=== PATIENT | male | born 1940 | race Caucasian/White ===

== ENCOUNTER → 2017-08-10 | Outpatient (CLI) | payer MEDICARE, OTHER ==
[2017-08-10 16:54] LABS: ABSOLUTE EOSINOPHILS # (AUTO) 0.2 10^3/uL (0.0-0.6); ABSOLUTE LYMPHOCYTES (AUTO) 1.4 10^3/uL (0.5-4.7); ABSOLUTE MONOCYTES (AUTO) 0.5 10^3/uL (0.1-1.4); ABSOLUTE NEUT (AUTO) 3.7 10^3/uL (1.7-8.2); BASOPHILS % (AUTO) 0.4 % (0-2); HEMATOCRIT 35.5 % (37.9-51.0); HEMOGLOBIN 12.3 g/dL (13.5-17.0); HGB HCT DIFFERENCE 1.4; LYMPHOCYTES % (AUTO) 23.9 % (13-45); MEAN CORPUSCULAR HEMOGLOBIN 30.2 pg (27.0-33.4); MEAN CORPUSCULAR HGB CONC 34.7 g/dL (32.0-36.0); MEAN CORPUSCULAR VOLUME 87 fl (80-97); MONOCYTES % (AUTO) 8.1 % (3-13); RED BLOOD COUNT 4.08 10^6/uL (4.35-5.55); RED CELL DISTRIBUTION WIDTH 15.8 % (11.5-14.0); SEGMENTED NEUTROPHILS % (AUTO) 63.6 % (42-78); WHITE BLOOD COUNT 5.8 10^3/uL (4.0-10.5)
[2017-08-10 17:42] LABS: ERYTHROCYTE SEDIMENTATION RATE 24 mm/hr (0-20)
== END ==
LOC: OD 16:23
PROVIDERS: ATTEND Physician Assistant
DX: M25.551 Pain in right hip (principal); M17.11 Unilateral primary osteoarthritis, right knee; Z96.641 Presence of right artificial hip joint
CPT/HCPCS: 36415; 85025; 85652; 86140

== ENCOUNTER → 2017-08-16 | Outpatient (CLI) | payer MEDICARE, OTHER ==
--- NOTE | 2017-08-16 15:34 | RADIOLOGY REPORT (SQ) ---
EXAM DESCRIPTION: NM 3 PHASE BONE SCAN COMPLETED DATE/TIME: 08/16/2017 3:17 pm REASON FOR STUDY: RIGHT HIP PAIN (M25.551) M25.551 PAIN IN RIGHT HIP COMPARISON: Whole-body bone scan 08/14/2010 CT abdomen pelvis 04/03/2011 Pelvis and lumbar spine films 08/10/2017, [facility] RADIONUCLIDE AND DOSE: 21.3 millicuries Tc99m MDP. The route of agent administration: Intravenous. ADDITIONAL DRUGS AND DOSES: None. TECHNIQUE: Following injection of the radiopharmaceutical, serial blood flow images acquired. Equil ibrium blood pool images then acquired. Routine delayed images at 3 hour acquired of the areas of cl inical concern with additional focused images as needed. AREA OF INTEREST: Bilateral hips and knees LIMITATIONS: None. FINDINGS: VASCULAR FLOW IMAGES: Flow images over the pelvis demonstrate no asymmetry. BLOOD POOL IMAGES: Blood pool images over the pelvis were obtained. No abnormal soft tissue accumula tion over the blood pool images, along the right hip. BONES: Delayed images over the lumbar spine, pelvis, femurs, and knees were obtained. No abnormal increased uptake over the lumbar spine or bony pelvis. There is a bare area over the right femoral head region from hip replacements. No increased uptake a long the proximal femur worrisome for prosthesis loosening or infection. A left total knee replacement is present. There is very mild increased uptake along the medial tibia l plateau adjacent to the prosthesis. On the right side, tricompartment osteoarthritis with increase d uptake throughout the right knee is present. KIDNEYS: Symmetric excretion without obstruction. OTHER: No other significant finding. IMPRESSION: No abnormal uptake around the right hip prosthesis worrisome for loosening or infection Minimal increased uptake along the medial tibial plateau adjacent to a left total knee replacement. This could be reactive change rather than from loosening of the prosthesis. Advanced tricompartment osteoarthritis right knee COMMENT: Quality measure 147: Current bone scan is compared with any available plain radiographs, p rior bone scans, and CT/MRI. TECHNICAL DOCUMENTATION: JOB ID: [id number]- All Rights Reserved
== END ==
LOC: RAD 10:35
PROVIDERS: ATTEND Physician Assistant
DX: M25.551 Pain in right hip (principal); M17.11 Unilateral primary osteoarthritis, right knee
CPT/HCPCS: 78315; A9561; Q9969

== ENCOUNTER 2018-07-07 20:18 | Inpatient (IN) | payer OTHER, MEDICARE ==
--- NOTE | 2018-07-07 20:36 | ER Document Report ---
ED Fall - General Mode of Arrival: Medic Information source: Patient, Emergency Med Personnel TRAVEL OUTSIDE OF THE [place] IN LAST 30 DAYS: No <TATIANA NELSON - Last Filed: 07/08/18 00:30> <BRAXTON SINGER - Last Filed: 07/08/18 00:39> - General Stated Complaint: ALTERED MENTAL STATUS Time Seen by Provider: 07/07/18 20:30 Notes: 77 y.o male with HLD, HTN, Afib, asthma and a PSHx of colon resection presents to the ED via EMS after being found on the floor against the door, estimated to be for about a day to a day and a half. Pt hit his head in the fall and is on blood thinners. EMS reports abrasions to abdomen and head. Pt was found with dried urine on him. He is confused, able to state who the president is correctly but he not oriented to place. Normally lives by himself and is able to fully care for himself. (TATIANA NELSON) - Related data Allergies/Adverse Reactions: No Known Allergies Allergy (Unverified 12/30/12 02:06) Past Medical History - General Information source: [facility] Records - Social History Smoking Status: Unknown if Ever Smoked Frequency of alcohol use: Hx of heavy, quit many years ago Lives with: Alone - Past Medical History Cardiac Medical History: Reports: Hx Atrial Fibrillation, Hx Hypercholesterolemia, Hx Hypertension Pulmonary Medical History: Reports: Hx Asthma Past Surgical History: Reports: Hx Abdominal Surgery - colon resection, Hx Orthopedic Surgery, Hx Tonsillectomy - Immunizations Hx Pneumococcal Vaccination: 11/22/09 <TATIANA NELSON - Last Filed: 07/08/18 00:30> - Social History Family History: Reviewed & Not Pertinent <BRAXTON SINGER - Last Filed: 07/08/18 00:39> Review of Systems - Review of Systems Constitutional: No symptoms reported EENT: No symptoms reported Cardiovascular: No symptoms reported Respiratory: No symptoms reported Gastrointestinal: No symptoms reported Genitourinary: No symptoms reported Male Genitourinary: No symptoms reported Musculoskeletal: No symptoms reported Skin: See HPI, Other - abrasions Hematologic/Lymphatic: No symptoms reported Neurological/Psychological: See HPI, Confusion, Other - fall, hit to head on blood thinners -: Yes All other systems reviewed and negative <TATIANA NELSON - Last Filed: 07/08/18 00:30> Physical Exam <TATIANA NELSON - Last Filed: 07/08/18 00:30> <BRAXTON SINGER - Last Filed: 07/08/18 00:39> - Notes Notes: PHYSICAL EXAM GENERAL: Awake. Appears somewhat confused and somewhat tremulous. HEAD: Normocephalic. Abrasion and blood crusted to top of head. Skin sloughing and blistering to LT side of face. EYES: Pupils equal, round, and reactive to light. Extraocular movements intact. ENT: Oral mucosa moist, tongue midline. Dry mucous membranes. NECK: Full range of motion. Supple. Trachea midline. LUNGS: Clear to auscultation bilaterally, no wheezes, rales, or rhonchi. No respiratory distress. HEART: Regular rate and rhythm. No murmurs, gallops, or rubs. ABDOMEN: Obese. Soft, non-tender. Skin sloughing and blistering to abd. Erythema to stomach. Non-distended. Bowel sounds present in all 4 quadrants. No guarding, rebound, or rigidity. EXTREMITIES: Moves all 4 extremities spontaneously. Chronically dry skin. 3+ pitting edema to bilateral lower extremities. Radial and dorsalis pedis pulses 2 /4 bilaterally. No cyanosis. Hypertrophic toenails. NEUROLOGICAL: Awake. Confused, not oriented to place. Speech is not slurred, answers some questions, also some nonsensical speech. Able to follow commands. SKIN: Warm, dry. Negative nikolsky sign. See abdomen, head and extremities above. No active signs of infection. Skin exam is consistent with pt lying on his LT side and abdomen. (TATIANA NELSON) Course - Laboratory Result Diagrams: 07/07/18 20:45 07/07/18 20:45 <TATIANA NELSON - Last Filed: 07/08/18 00:30> - Laboratory Result Diagrams: 07/07/18 20:45 07/07/18 20:45 <BRAXTON SINGER - Last Filed: 07/08/18 00:39> - Re-evaluation Re-evalutation: 07/07/18 23:47 Patient was found down at home, CT scan of head was performed quickly and it ruled out intracranial hemorrhage, CT scan of the neck did not show any signs of fracture, chest x-ray shows possible right lower lobe pneumonia, Zosyn was started, patient does not meet sepsis criteria, he is not hypotensive or tachycardic, he does have an elevated lactic acid at 2.5, there is a leukocytosis at 16.8, patient is not acidotic, venous blood gas is unremarkable , no signs of renal failure, he is in rhabdo with a CK of 5585, troponin is negative, urinalysis shows small blood but no signs of infection. Blood culture and urine cultures are pending. Patient is being hydrated. Discussed patient with Dr. Costello who agrees to admit the patient to his service on the telemetry care unit. (BRAXTON SINGER) - Laboratory Laboratory results interpreted by me: 07/07/18 07/07/18 07/07/18 20:45 20:45 20:45 WBC 16.8 H RDW 16.5 H Seg Neuts % (Manual) 91 H Band Neutrophils % 1 L Lymphocytes % (Manual) 6 L Monocytes % (Manual) 2 L Abs Neuts (Manual) 15.5 H PT 16.2 H Sodium 147.6 H BUN 34 H Glucose 182 H Lactic Acid Total Bilirubin 1.7 H AST 145 H Creatine Kinase CK-MB (CK-2) Urine Protein Urine Ketones Urine Blood Urine Urobilinogen Urine Ascorbic Acid 07/07/18 07/07/18 07/07/18 20:45 20:45 20:45 WBC RDW Seg Neuts % (Manual) Band Neutrophils % Lymphocytes % (Manual) Monocytes % (Manual) Abs Neuts (Manual) PT Sodium BUN Glucose Lactic Acid 2.5 H Total Bilirubin AST Creatine Kinase 5585 H CK-MB (CK-2) 19.20 H Urine Protein Urine Ketones Urine Blood Urine Urobilinogen Urine Ascorbic Acid 07/07/18 22:35 WBC RDW Seg Neuts % (Manual) Band Neutrophils % Lymphocytes % (Manual) Monocytes % (Manual) Abs Neuts (Manual) PT Sodium BUN Glucose Lactic Acid Total Bilirubin AST Creatine Kinase CK-MB (CK-2) Urine Protein 30 H Urine Ketones TRACE H Urine Blood SMALL H Urine Urobilinogen 2.0 H Urine Ascorbic Acid 40 H - EKG Interpretation by Me Additional EKG results interpreted by me: 07/07/18 23:47 EKG shows atrial fibrillation with a ventricularly paced rhythm, no ST segment elevations or depressions, complexes consistent with ventricular pacing, old EKG does not show ventricularly paced complexes, no evidence of STEMI per my interpretation. (BRAXTON SINGER) Critical Care Note - Critical Care Note Total time excluding time spent on procedures (mins): 35 <BRAXTON SINGER - Last Filed: 07/08/18 00:39> Discharge <TATIANA NELSON - Last Filed: 07/08/18 00:30> - [facility] Unit Admitted: Telemetry <BRAXTON SINGER - Last Filed: 07/08/18 00:39> - Discharge Clinical Impression: Delirium Fall at home Qualifiers: Encounter type: initial encounter Qualified Code(s): W19.XXXA - Unspecified fall, initial encounter Traumatic rhabdomyolysis Qualifiers: Encounter type: initial encounter Qualified Code(s): T79.6XXA - Traumatic ischemia of muscle, initial encounter Right lower lobe pneumonia Qualifiers: Pneumonia type: due to unspecified organism Qualified Code(s): J18.1 - Lobar pneumonia, unspecified organism Condition: Fair Disposition: ADMITTED INPATIENT Scribe Attestation: 07/08/18 00:39 I personally performed the services described in the documentation, reviewed and edited the documentation which was dictated to the scribe in my presence, and it accurately records my words and actions. (BRAXTON SINGER) Scribe Documentation - Scribe Written by Laura:: Laura Hernandez 07/07/[id number] acting as scribe for :: Ry <TATIANA NELSON - Last Filed: 07/08/18 00:30>
--- NOTE | 2018-07-07 21:13 | EKG REPORT ---
SEVERITY:- ABNORMAL ECG - AFIB/FLUTTER AND VENTRICULAR-PACED RHYTHM : Confirmed by: Manny Gulilaume MD 07-Jul-2018 21:12:38
[2018-07-07 21:16] LABS: VENOUS BLOOD BASE EXCESS 3.2 mmol/L; VENOUS BLOOD HCO3 30.5 mmol/L (20-32); VENOUS BLOOD PCO2 53.7 mmHg (35-63); VENOUS BLOOD PH 7.37 (7.30-7.42)
[2018-07-07 21:18] LABS: HEMATOCRIT 40.9 % (37.9-51.0); HEMOGLOBIN 13.6 g/dL (13.5-17.0); MEAN CORPUSCULAR HGB CONC 33.2 g/dL (32.0-36.0); MEAN CORPUSCULAR VOLUME 87 fl (80-97); PLATELET COUNT 181 10^3/uL (150-450); RED BLOOD COUNT 4.69 10^6/uL (4.35-5.55); RED CELL DISTRIBUTION WIDTH 16.5 % (11.5-14.0); WHITE BLOOD COUNT 16.8 10^3/uL (4.0-10.5)
[2018-07-07 21:20] LABS: INTERNATIONAL RATION (INR) 1.24; PROTHROMBIN TIME 16.2 SEC (11.4-15.4)
[2018-07-07 21:30] LABS: ALANINE AMINOTRANSFERASE 47 U/L (21-72); ALKALINE PHOSPHATASE 75 U/L (38-126); ANION GAP 16 (5-19); ASPARTATE AMINO TRANSFERASE 145 U/L (17-59); BILIRUBIN,DIRECT 0.4 mg/dL (0.0-0.4); BILIRUBIN,TOTAL 1.7 mg/dL (0.2-1.3); BLOOD UREA NITROGEN 34 mg/dL (7-20); CALCIUM 9.2 mg/dL (8.4-10.2); CARBON DIOXIDE 25 mmol/L (22-30); CHLORIDE 107 mmol/L (98-107); GLUCOSE 182 mg/dL (75-110); POTASSIUM 4.6 mmol/L (3.6-5.0); SODIUM 147.6 mmol/L (137-145)
--- NOTE | 2018-07-07 21:30 | RADIOLOGY REPORT (SQ) ---
EXAM DESCRIPTION: CHEST SINGLE VIEW COMPLETED DATE/TIME: 07/07/2018 9:17 pm REASON FOR STUDY: syncope COMPARISON: 12/30/2012 EXAM PARAMETERS: NUMBER OF VIEWS: One view. TECHNIQUE: Single frontal radiographic view of the chest acquired. RADIATION DOSE: NA LIMITATIONS: None. FINDINGS: LUNGS AND PLEURA: Patchy opacification in the right base. MEDIASTINUM AND HILAR STRUCTURES: No masses. Contour normal. HEART AND VASCULAR STRUCTURES: Cardiomegaly. No trista pulmonary edema. BONES: No acute findings. HARDWARE: None in the chest. OTHER: No other significant finding. IMPRESSION: Cardiomegaly with no trista CHF. Cannot exclude a limited right middle lobe or lower lob e pneumonia. TECHNICAL DOCUMENTATION: JOB ID: [id number] [employer]- All Rights Reserved Reading location - IP/workstation name: [email or web address]
--- NOTE | 2018-07-07 21:32 | RADIOLOGY REPORT (SQ) ---
EXAM DESCRIPTION: CT HEAD WITHOUT COMPLETED DATE/TIME: 07/07/2018 9:17 pm REASON FOR STUDY: fall COMPARISON: None. TECHNIQUE: Axial images acquired through the brain without intravenous contrast. Images reviewed wi th bone, brain and subdural windows. Additional sagittal and coronal reconstructions were generated. Images stored on PACS. All CT scanners at this facility use dose modulation, iterative reconstruction, and/or weight based d osing when appropriate to reduce radiation dose to as low as reasonably achievable (ALARA). [facility]: Dose Right [facility]: CareDose [facility]: Dose Right [facility]: Teradose 4D [facility]: [employer] RADIATION DOSE: CT Rad equipment meets quality standard of care and radiation dose reduction techniq ues were employed. CTDIvol: 55.2 mGy. DLP: 1112 mGy-cm. mGy. LIMITATIONS: None. FINDINGS: VENTRICLES: Prominent ventricles secondary to involutional atrophy. CEREBRUM: Cortical atrophy. No masses. No hemorrhage. No midline shift. No evidence for acute inf arction. Few scattered areas of low density in the white matter most likely chronic small vessel isch emic changes. CEREBELLUM: No masses. No hemorrhage. No alteration of density. No evidence for acute infarction. EXTRAAXIAL SPACES: No fluid collections. No masses. ORBITS AND GLOBE: No intra- or extraconal masses. Normal contour of globe without masses. CALVARIUM: No fracture. PARANASAL SINUSES: No fluid or mucosal thickening. SOFT TISSUES: No mass or hematoma. OTHER: No other significant finding. IMPRESSION: Involutional changes of aging with mild chronic microvascular ischemia and no acute intr acranial imaging findings. EVIDENCE OF ACUTE STROKE: NO. COMMENT: Quality ID # [id number]: Final reports with documentation of one or more dose reduction techniques (e.g., Automated exposure control, adjustment of the mA and/or kV according to patient size, use of iterative reconstruction technique) TECHNICAL DOCUMENTATION: JOB ID: [id number] [employer]- All Rights Reserved Reading location - IP/workstation name: [email or web address]
--- NOTE | 2018-07-07 21:34 | RADIOLOGY REPORT (SQ) ---
EXAM DESCRIPTION: CT CERVICAL SPINE WITHOUT COMPLETED DATE/TIME: 07/07/2018 9:17 pm REASON FOR STUDY: fall COMPARISON: None. TECHNIQUE: Axial images acquired through the cervical spine without intravenous contrast. Images re viewed with lung, soft tissue and bone windows. Reconstructed coronal and sagittal MPR images review ed. Images stored on PACS. All CT scanners at this facility use dose modulation, iterative reconstruction, and/or weight based d osing when appropriate to reduce radiation dose to as low as reasonably achievable (ALARA). [facility]: Dose Right [facility]: CareDose [facility]: Dose Right [facility]: Teradose 4D [facility]: [employer] RADIATION DOSE: CT Rad equipment meets quality standard of care and radiation dose reduction techniq ues were employed. CTDIvol: 26.6 mGy. DLP: 618 mGy-cm. mGy. LIMITATIONS: None. FINDINGS: ALIGNMENT: Anatomic. MINERALIZATION: Normal. VERTEBRAL BODIES: No fractures or dislocation. DISCS: No significant disc disease. FACETS, LATERAL MASSES, POSTERIOR ELEMENTS: No fractures. No dislocation. No acute findings. HARDWARE: None in the spine. VISUALIZED RIBS: No fractures. LUNG APICES AND SOFT TISSUES: No significant or acute findings. OTHER: No other significant finding. IMPRESSION: NO ACUTE OR SIGNIFICANT FINDINGS IN THE CERVICAL SPINE. TECHNICAL DOCUMENTATION: JOB ID: [id number] Quality ID # [id number]: Final reports with documentation of one or more dose reduction techniques (e.g., Au tomated exposure control, adjustment of the mA and/or kV according to patient size, use of iterative reconstruction technique) 2010 [email or web address]- All Rights Reserved Reading location - IP/workstation name: [email or web address]
[2018-07-07 21:43] LABS: ABSOLUTE MONOCYTES # (MANUAL) 0.3 10^3/uL (0.1-1.4); ABSOLUTE NEUTROPHILS# (MANUAL) 15.5 10^3/uL (1.7-8.2); BAND NEUTROPHILS % (MANUAL) 1 % (3-5); BASOPHILS % (MANUAL) 0 % (0-2); EOSINOPHILS % (MANUAL) 0 % (0-6); LYMPHOCYTES % (MANUAL) 6 % (13-45); MONOCYTES % (MANUAL) 2 % (3-13); PLATELET COMMENT ADEQUATE; SEGMENTED NEUTROPHILS % (MAN) 91 % (42-78); TOTAL CELLS COUNTED 100
[2018-07-07 21:46] LABS: ANISOCYTOSIS 1+; BURR CELLS SLIGHT; OVALOCYTES 1+; POIKILOCYTOSIS 1+; POLYCHROMASIA SLIGHT; TEAR DROP CELLS SLIGHT
[2018-07-07 22:30] LABS: TROPONIN I < 0.012 ng/mL
[2018-07-07] MEDS ORDERED: PIPERACILLIN/TAZOBACTAM 4.5 GM VIAL IV ONE (22:44)
[2018-07-07 22:48] LABS: APPEARANCE,URINE SLIGHTLY-CLOUDY; BILIRUBIN,URINE NEGATIVE (NEGATIVE); COLOR,URINE YELLOW; GLUCOSE, URINE NEGATIVE (NEGATIVE); KETONES,URINE TRACE mg/dL (NEGATIVE); LEUKOCYTE ESTERASE,URINE NEGATIVE (NEGATIVE); NITRITE,URINE NEGATIVE (NEGATIVE); PROTEIN,URINE 30 mg/dL (NEGATIVE); URINE SPECIFIC GRAVITY 1.026
[2018-07-07] MEDS: NORMAL SALINE 1000 ML 1,000 ML IV PRN (23:34)
[2018-07-07] MEDS ORDERED: NORMAL SALINE 1000 ML 1,000 ML IV SCH (23:45)
[2018-07-07] MEDS ORDERED: ALPRAZOLAM 0.25 MG TABLET PO PRN (23:50)
[2018-07-07] MEDS ORDERED: GUAIFENESIN SYRP 200 MG/10 ML UDC PO PRN (23:52)
[2018-07-07] MEDS ORDERED: IPRATROPIUM/ALBUTEROL 0.5-2.5 MG/3 ML AMPUL NEB PRN (23:52)
[2018-07-07] MEDS ORDERED: ACETAMINOPHEN 325 MG TABLET PO PRN (23:52)
[2018-07-08 01:30] LABS: URINE AMPHETAMINES SCREEN NEGATIVE; URINE BARBITURATES SCREEN NEGATIVE; URINE BENZODIAZEPINES SCREEN UNCONFIRMED POSITIVE; URINE COCAINE SCREEN NEGATIVE; URINE MARIJUANA (THC) SCREEN NEGATIVE; URINE METHADONE SCREEN NEGATIVE; URINE PHENCYCLIDINE SCREEN NEGATIVE
[2018-07-08] MEDS: IPRATROPIUM/ALBUTEROL 0.5-2.5 MG/3 ML AMPUL NEB SCH ×4 (01:40→19:46)
[2018-07-08] MEDS ORDERED: HYDROCODONE/ACETAMINOPHEN 10-325 MG TABLET PO ONE (02:36)
[2018-07-08] MEDS: HYDROCODONE/ACETAMINOPHEN 10-325 MG TABLET PO SCH ×3 (03:07→18:07)
[2018-07-08] MEDS: NORMAL SALINE 1000 ML 1,000 ML IV PRN (03:39)
[2018-07-08 06:23] LABS: ABSOLUTE LYMPHOCYTES (AUTO) 0.9 10^3/uL (0.5-4.7); ABSOLUTE MONOCYTES (AUTO) 1.1 10^3/uL (0.1-1.4); ABSOLUTE NEUT (AUTO) 14.1 10^3/uL (1.7-8.2); BASOPHILS % (AUTO) 0.1 % (0-2); HEMATOCRIT 38.9 % (37.9-51.0); HEMOGLOBIN 12.9 g/dL (13.5-17.0); LYMPHOCYTES % (AUTO) 5.6 % (13-45); MEAN CORPUSCULAR HEMOGLOBIN 29.1 pg (27.0-33.4); MEAN CORPUSCULAR HGB CONC 33.1 g/dL (32.0-36.0); MEAN CORPUSCULAR VOLUME 88 fl (80-97); MONOCYTES % (AUTO) 6.6 % (3-13); PLATELET COUNT 160 10^3/uL (150-450); RED BLOOD COUNT 4.42 10^6/uL (4.35-5.55); SEGMENTED NEUTROPHILS % (AUTO) 87.7 % (42-78); TOTAL CELLS COUNTED % (AUTO) 100 %; WHITE BLOOD COUNT 16.1 10^3/uL (4.0-10.5)
[2018-07-08 06:35] LABS: ANION GAP 13 (5-19); BLOOD UREA NITROGEN 31 mg/dL (7-20); CALCIUM 8.2 mg/dL (8.4-10.2); CARBON DIOXIDE 23 mmol/L (22-30); CHLORIDE 112 mmol/L (98-107); GLUCOSE 184 mg/dL (75-110); SODIUM 148.2 mmol/L (137-145)
[2018-07-08 06:43] LABS: POTASSIUM 3.6 mmol/L (3.6-5.0)
[2018-07-08 06:59] LABS: CREATINE KINASE 5906 U/L (55-170)
--- NOTE | 2018-07-08 07:24 | PDOC H&P ---
History of Present Illness Admission Date/PCP: 07/08/18 00:12 Patient complains of: Fall History of Present Illness: DANIA KERNS is a 77 year old male with a past medical history of hypertension, atrial fibrillation on Xarelto, dementia, living independently who presents after being found on the floor with orientation 1 and bleeding from the scalp. He is found to have right lower lobe infiltrate, rhabdomyolysi, started on empiric antibiotics and IV fluids. Patient is a poor historian, family contacted estimate time down approximately 12 hours. He denies pain but complains of hunger. Unknown recent change of medications though reconciliation includes Xanax, Ambien and Vicodin. Past Medical History Cardiac Medical History: Reports: Atrial Fibrillation, Hyperlipidema, Hypertension Pulmonary Medical History: Reports: Asthma Psychiatric Medical History: Reports: Dementia, Depression Denies: Alcohol Dependency Past Surgical History Past Surgical History: Reports: Orthopedic Surgery, Tonsillectomy Social History Information Source: [facility] Records Lives with: Alone Smoking Status: Never Smoker Frequency of Alcohol Use: None Hx Recreational Drug Use: No Hx Prescription Drug Abuse: No - Advance Directive Resuscitation Status: Full Code Family History Family History: Other - Unobtainable Parental Family History Reviewed: Yes Children Family History Reviewed: Yes Sibling(s) Family History Reviewed.: Yes Medication/Allergy Home Medications: Albuterol Sulfate [Proair HFA Inhalation Aerosol 8.5 gm MDI] 200 puff IH Q6H PRN 12/30/12 Allopurinol [Zyloprim 100 mg Tablet] 200 mg PO DAILY 12/30/12 Atenolol [Tenormin 50 mg Tablet] 100 mg PO BID 12/30/12 Atorvastatin Calcium [Lipitor 40 mg Tablet] 80 mg PO QHS 12/30/12 Calcium Carbonate/Vitamin D3 [Calcium 600 + Vit D 400 Tablet] 1 each PO DAILY Celecoxib [Celebrex 200 mg Capsule] 200 mg PO DAILY 12/30/12 Doxazosin Mesylate [Cardura 4 mg Tablet] 8 mg PO DAILY 12/30/12 Fosinopril Sodium [Monopril] 20 mg PO BID 12/30/12 Hydrocodone Bit/Acetaminophen [Vicodin 5-500 mg Tablet ([facility] Only)] 1 - 2 tab PO ASDIR PRN 12/30/12 Rivaroxaban [Xarelto 10 mg Tablet] 20 mg PO QPM 12/30/12 Diltiazem HCl [Diltiazem ER] 120 mg PO ACSUPPER 07/08/18 Finasteride 5 mg PO QHS 07/08/18 Hydrocodone/Acetaminophen [Vicodin Hp 10-300 mg Tablet] 1 tab PO Q6HP 07/08/18 Lutein 20 mg PO QHS 07/08/18 Magnesium 400 mg PO QHS 07/08/18 Metformin HCl 500 mg PO DAILY 07/08/18 Olanzapine 15 mg PO DAILY 07/08/18 Sertraline HCl 100 mg PO QHS 07/08/18 Allergies/Adverse Reactions: No Known Allergies Allergy (Unverified 12/30/12 02:06) Review of Systems ROS unobtainable: Due to mental status Physical Exam Vital Signs: Temp Pulse Resp BP Pulse Ox 98.0 F 72 17 166/77 H 96 07/08/18 02:12 07/08/18 03:15 07/08/18 02:12 07/08/18 02:12 07/08/18 03:46 Pulse Oximeter Continuous Start: 07/07/18 23: 52 Freq: RTQ4 Status: Active Document 07/08/18 03:46 EST (Rec: 07/08/18 03:50 EST [email or web address]) Pulse Oximetry Assessment Oxygen Saturation (92-100) 96 Oxygen Delivery Method Room Air Fraction of Inspired Oxygen (FIO2) 21 Equipment Usage Initial Set Up Continuous Pulse Oximeter 24 Hour Charge Charge Now Continuous SpO2 Machine # 11 Intake & Output 07/06/18 07/07/18 07/08/18 11:59 11:59 11:59 Intake Total 1999 Balance 1999 Weight 127.3 kg General appearance: PRESENT: cooperative, disheveled, mild distress, morbidly obese Head exam: PRESENT: normocephalic. ABSENT: atraumatic - Scalp laceration versus bleeding skin lesion Eye exam: PRESENT: conjunctiva pink, EOMI, PERRLA. ABSENT: scleral icterus Ear exam: PRESENT: normal external ear exam Mouth exam: PRESENT: moist, tongue midline Neck exam: ABSENT: carotid bruit, JVD, lymphadenopathy, thyromegaly Respiratory exam: PRESENT: clear to auscultation angelica, crackles, prolonged expiratory phas, tachypnea. ABSENT: rales, rhonchi, wheezes Cardiovascular exam: PRESENT: RRR. ABSENT: diastolic murmur, rubs, systolic murmur Pulses: PRESENT: normal dorsalis pedis pul Vascular exam: PRESENT: normal capillary refill GI/Abdominal exam: PRESENT: normal bowel sounds, soft. ABSENT: distended, guarding, mass, organolmegaly, rebound, tenderness Rectal exam: PRESENT: deferred Extremities exam: PRESENT: full ROM. ABSENT: calf tenderness, clubbing, pedal edema Neurological exam: PRESENT: alert, altered, awake, oriented to person, CN II- XII grossly intact. ABSENT: motor sensory deficit Psychiatric exam: PRESENT: appropriate affect, normal mood. ABSENT: homicidal ideation, suicidal ideation Skin exam: PRESENT: dry, intact, warm. ABSENT: cyanosis, rash Results Laboratory Results: 07/08/18 05:28 07/08/18 05:28 07/08/18 07/08/18 07/08/18 00:23 00:23 05:28 WBC 16.1 H RBC 4.42 Hgb 12.9 L Hct 38.9 MCV 88 MCH 29.1 MCHC 33.1 RDW 16.0 H Plt Count 160 Seg Neutrophils % 87.7 H Lymphocytes % 5.6 L Monocytes % 6.6 Eosinophils % 0.0 Basophils % 0.1 Absolute Neutrophils 14.1 H Absolute Lymphocytes 0.9 Absolute Monocytes 1.1 Absolute Eosinophils 0.0 Absolute Basophils 0.0 Sodium Potassium Chloride Carbon Dioxide Anion Gap BUN Creatinine Est GFR ( Amer) Est GFR (Non-Af Amer) Glucose Lactic Acid 1.6 Calcium Ammonia < 8.7 L 07/08/18 05:28 WBC RBC Hgb Hct MCV MCH MCHC RDW Plt Count Seg Neutrophils % Lymphocytes % Monocytes % Eosinophils % Basophils % Absolute Neutrophils Absolute Lymphocytes Absolute Monocytes Absolute Eosinophils Absolute Basophils Sodium 148.2 H Potassium 3.6 D Chloride 112 H Carbon Dioxide 23 Anion Gap 13 BUN 31 H Creatinine 0.60 Est GFR ( Amer) > 60 Est GFR (Non-Af Amer) > 60 Glucose 184 H Lactic Acid Calcium 8.2 L Ammonia 07/08/18 05:28 Creatine Kinase 5906 H Impressions: Cervical Spine CT 07/07/18 00:00 IMPRESSION: NO ACUTE OR SIGNIFICANT FINDINGS IN THE CERVICAL SPINE. Head CT 07/07/18 00:00 IMPRESSION: Involutional changes of aging with mild chronic microvascular ischemia and no acute intracranial imaging findings. EVIDENCE OF ACUTE STROKE: NO. Chest X-Ray 07/07/18 20:21 IMPRESSION: Cardiomegaly with no trista CHF. Cannot exclude a limited right middle lobe or lower lobe pneumonia. Assessment & Plan - Diagnosis (1) Right lower lobe pneumonia Qualifiers: Pneumonia type: due to unspecified organism Qualified Code(s): J18.1 - Lobar pneumonia, unspecified organism Is this a current diagnosis for this admission?: Yes Plan: Possible aspiration, complicated by benzodiazepine use. Pneumonia care set, incentive spirometry. Follow-up CBC and culture (2) Traumatic rhabdomyolysis Qualifiers: Encounter type: initial encounter Qualified Code(s): T79.6XXA - Traumatic ischemia of muscle, initial encounter Is this a current diagnosis for this admission?: Yes Plan: IV fluid challenge, follow-up total CK and chemistry (3) Encephalopathy Is this a current diagnosis for this admission?: Yes Plan: Suspected baseline dementia, complicated by benzodiazepine and trauma. Supportive care, (4) Fall at home Qualifiers: Encounter type: initial encounter Qualified Code(s): W19.XXXA - Unspecified fall, initial encounter; Y92.009 - Unspecified place in unspecified non-institutional (private) residence as the place of occurrence of the external cause; Y92.009 - Unspecified place in unspecified non-institutional ( private) residence as the place of occurrence of the external cause Is this a current diagnosis for this admission?: Yes Plan: Multifactorial, evaluate orthostatic blood pressure and PT eval - Time Time Spent: 50 to 70 Minutes - Inpatient Certification Medical Necessity: Need Close Monitoring Due to Risk of Patient Decompensation
[2018-07-08] MEDS: ENALAPRIL MALEATE 10 MG TABLET PO SCH ×2 (09:58→17:30)
[2018-07-08] MEDS: ASPIRIN 81 MG TABLET, CHEWABLE PO SCH (09:58)
[2018-07-08] MEDS ORDERED: LEVOFLOXACIN 750 MG/D5W RTU 750 MG/150 ML RTUPB IV SCH (10:00)
[2018-07-08] MEDS ORDERED: ATENOLOL 50 MG TABLET PO SCH (10:00)
[2018-07-08] MEDS ORDERED: AMPICILLIN SOD/SULBACTAM 1.5 GM VIAL IV SCH (15:00)
[2018-07-08] MEDS: RIVAROXABAN 10 MG TABLET PO SCH (17:29)
[2018-07-08] MEDS: AMPICILLIN SODIUM/SULBACTAM NA 1.5 GM in NORMAL SALINE 50 ML IV SCH (17:29)
[2018-07-08] MEDS: DILTIAZEM HCL 30 MG TABLET PO SCH (21:33)
[2018-07-08] MEDS: DOXAZOSIN MESYLATE 4 MG TABLET PO SCH (21:34)
[2018-07-08] MEDS: ATENOLOL 50 MG TABLET PO SCH (21:34)
[2018-07-09] MEDS: AMPICILLIN SODIUM/SULBACTAM NA 1.5 GM in NORMAL SALINE 50 ML IV SCH ×4 (00:19→18:39)
[2018-07-09] MEDS: IPRATROPIUM/ALBUTEROL 0.5-2.5 MG/3 ML AMPUL NEB SCH ×4 (02:17→20:21)
[2018-07-09] MEDS: HYDROCODONE/ACETAMINOPHEN 10-325 MG TABLET PO SCH ×3 (03:45→18:37)
[2018-07-09 05:29] LABS: ABSOLUTE EOSINOPHILS # (AUTO) 0.1 10^3/uL (0.0-0.6); ABSOLUTE MONOCYTES (AUTO) 0.9 10^3/uL (0.1-1.4); ABSOLUTE NEUT (AUTO) 10.5 10^3/uL (1.7-8.2); BASOPHILS % (AUTO) 0.2 % (0-2); EOSINOPHILS % (AUTO) 0.8 % (0-6); HEMATOCRIT 36.6 % (37.9-51.0); HEMOGLOBIN 12.3 g/dL (13.5-17.0); LYMPHOCYTES % (AUTO) 7.9 % (13-45); MEAN CORPUSCULAR HEMOGLOBIN 29.5 pg (27.0-33.4); MEAN CORPUSCULAR HGB CONC 33.5 g/dL (32.0-36.0); MEAN CORPUSCULAR VOLUME 88 fl (80-97); MONOCYTES % (AUTO) 7.1 % (3-13); PLATELET COUNT 147 10^3/uL (150-450); RED BLOOD COUNT 4.16 10^6/uL (4.35-5.55); RED CELL DISTRIBUTION WIDTH 16.1 % (11.5-14.0); TOTAL CELLS COUNTED % (AUTO) 100 %; WHITE BLOOD COUNT 12.5 10^3/uL (4.0-10.5)
[2018-07-09 05:56] LABS: ANION GAP 9 (5-19); BLOOD UREA NITROGEN 21 mg/dL (7-20); CALCIUM 7.9 mg/dL (8.4-10.2); CARBON DIOXIDE 25 mmol/L (22-30); CHLORIDE 113 mmol/L (98-107); GLUCOSE 110 mg/dL (75-110); POTASSIUM 3.7 mmol/L (3.6-5.0); SODIUM 147.3 mmol/L (137-145)
[2018-07-09 06:05] LABS: CREATINE KINASE 2794 U/L (55-170)
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
[2018-07-09] MEDS: ASPIRIN 81 MG TABLET, CHEWABLE PO SCH (09:03)
[2018-07-09] MEDS: ATENOLOL 50 MG TABLET PO SCH ×2 (09:03→20:59)
[2018-07-09] MEDS: ENALAPRIL MALEATE 10 MG TABLET PO SCH ×2 (09:04→18:37)
[2018-07-09] MEDS: NORMAL SALINE 1000 ML 1,000 ML IV PRN ×2 (13:44→23:39)
--- NOTE | 2018-07-09 13:53 | PDOC PROGRESS REPORT ---
Subjective Progress Note for:: 07/09/18 Subjective:: No acute event overnight. He is more coherent this morning albeit with hearing difficulties as he does not have his hearing aids with him. He know his full name, know she is in [place] and knows the date. He is also able to correctly say his full adress which he was not able to do so yesterday. He now recalls that he remembers taking a pill of Xanax form his 's previous medication supply and he got dizzy after taking the xanax with the vicodin. No fever, chills. Denies chest pain or SOB. Daughter updated on bedside. She is concerned that patient lives alone by himself and may not be safe living alone. Reason For Visit: ENCEPHALOPATHY,FALL,RHABDOMYOLYSIS,PNEUMONIA Physical Exam Vital Signs: Temp Pulse Resp BP Pulse Ox 98.4 F 86 21 H 148/91 H 96 07/09/18 11:30 07/09/18 11:32 07/09/18 11:30 07/09/18 11:32 07/09/18 11:39 Pulse Oximeter Continuous Start: 07/07/18 23: 52 Freq: RTQ4 Status: Active Document 07/09/18 11:39 [facility] (Rec: 07/09/18 11:39 [facility] [id number]) Pulse Oximetry Assessment Oxygen Saturation (92-100) 96 Oxygen Delivery Method Room Air Fraction of Inspired Oxygen (FIO2) 21 Equipment Usage Equipment in Use Continuous SpO2 Machine # 11 Intake & Output 07/08/18 07/09/18 07/10/18 06:59 06:59 06:59 Intake Total 2000 650 237 Output Total 350 200 Balance 2000 300 37 Weight 280 lb 10.375 oz General appearance: PRESENT: no acute distress, obese Head exam: PRESENT: other - Note of a superficial wound in the scalp Eye exam: PRESENT: conjunctiva pink, EOMI, PERRLA. ABSENT: scleral icterus Mouth exam: PRESENT: moist, tongue midline Neck exam: ABSENT: carotid bruit, JVD, lymphadenopathy, thyromegaly Respiratory exam: PRESENT: clear to auscultation angelica. ABSENT: rales, rhonchi, wheezes Cardiovascular exam: PRESENT: RRR. ABSENT: diastolic murmur, rubs, systolic murmur Pulses: PRESENT: normal dorsalis pedis pul GI/Abdominal exam: PRESENT: normal bowel sounds, soft. ABSENT: distended, guarding, mass, organolmegaly, rebound, tenderness Musculoskeletal exam: PRESENT: ambulatory Neurological exam: PRESENT: alert, awake, oriented to person, oriented to place , oriented to time, oriented to situation, CN II-XII grossly intact, other - He is more coherent this morning albeit with hearing difficulties as he does not have his hearing aids with him. He know his full name, know she is in [facility] and knows the date. He is also able to correctly say his full adress which he was not able to do so yesterday.. ABSENT: motor sensory deficit Results Laboratory Results: 07/09/18 04:58 07/09/18 04:58 07/09/18 07/09/18 04:58 04:58 WBC 12.5 H RBC 4.16 L Hgb 12.3 L Hct 36.6 L MCV 88 MCH 29.5 MCHC 33.5 RDW 16.1 H Plt Count 147 L Seg Neutrophils % 84.0 H Lymphocytes % 7.9 L Monocytes % 7.1 Eosinophils % 0.8 Basophils % 0.2 Absolute Neutrophils 10.5 H Absolute Lymphocytes 1.0 Absolute Monocytes 0.9 Absolute Eosinophils 0.1 Absolute Basophils 0.0 Sodium 147.3 H Potassium 3.7 Chloride 113 H Carbon Dioxide 25 Anion Gap 9 BUN 21 H Creatinine 0.57 Est GFR ( Amer) > 60 Est GFR (Non-Af Amer) > 60 Glucose 110 Calcium 7.9 L 07/08/18 07/09/18 05:28 04:58 Creatine Kinase 5906 H 2794 H Impressions: Cervical Spine CT 07/07/18 00:00 IMPRESSION: NO ACUTE OR SIGNIFICANT FINDINGS IN THE CERVICAL SPINE. Head CT 07/07/18 00:00 IMPRESSION: Involutional changes of aging with mild chronic microvascular ischemia and no acute intracranial imaging findings. EVIDENCE OF ACUTE STROKE: NO. Chest X-Ray 07/07/18 20:21 IMPRESSION: Cardiomegaly with no trista CHF. Cannot exclude a limited right middle lobe or lower lobe pneumonia. Assessment & Plan - Diagnosis (1) Acute encephalopathy Is this a current diagnosis for this admission?: Yes Plan: Resolved. Acute encephalopathy is likely from suspected mild dementia compounded by benzodiazepine (Xanax) and narcotic use (Vicodin). UDS is positive for benzos and opiates. (2) Atrial fibrillation Qualifiers: Atrial fibrillation type: paroxysmal Qualified Code(s): I48.0 - Paroxysmal atrial fibrillation Is this a current diagnosis for this admission?: Yes Plan: Rate controlled. Continue Xarelto. (3) Right lower lobe pneumonia Qualifiers: Pneumonia type: aspiration pneumonia Is this a current diagnosis for this admission?: Yes Plan: Patient's right lower lobe pneumonia likely from aspiration. Continue Unasyn. Blood culture positive for gram = cocci 1/2. Will await final culture results. (4) Traumatic rhabdomyolysis Qualifiers: Encounter type: initial encounter Qualified Code(s): T79.6XXA - Traumatic ischemia of muscle, initial encounter Is this a current diagnosis for this admission?: Yes Plan: Resolving. CK trending down. Continue IV fluids.
[2018-07-09] MEDS: RIVAROXABAN 10 MG TABLET PO SCH (18:37)
[2018-07-09] MEDS ORDERED: VANCOMYCIN HCL 0 MG in DEXTROSE 5%-WATER 250 ML IV NR (19:00)
[2018-07-09] MEDS ORDERED: VANCOMYCIN HCL INJ 1000 MG VIAL IV PRN (19:24)
[2018-07-09] MEDS ORDERED: VANCOMYCIN HCL 2,000 MG in DEXTROSE 5%-WATER 500 ML IV SCH (20:00)
[2018-07-09] MEDS ORDERED: VANCOMYCIN HCL INJ 1000 MG VIAL ONE (20:57)
[2018-07-09] MEDS: DOXAZOSIN MESYLATE 4 MG TABLET PO SCH (20:59)
[2018-07-09] MEDS: DILTIAZEM HCL 30 MG TABLET PO SCH (20:59)
[2018-07-09] MEDS ORDERED: DOXAZOSIN MESYLATE 4 MG TABLET PO SCH (22:00)
[2018-07-10] MEDS: IPRATROPIUM/ALBUTEROL 0.5-2.5 MG/3 ML AMPUL NEB SCH ×4 (02:20→20:24)
[2018-07-10] MEDS: HYDROCODONE/ACETAMINOPHEN 10-325 MG TABLET PO SCH ×3 (03:41→17:55)
[2018-07-10 09:16] LABS: APPEARANCE,URINE CLEAR; BILIRUBIN,URINE NEGATIVE (NEGATIVE); COLOR,URINE YELLOW; GLUCOSE, URINE NEGATIVE (NEGATIVE); KETONES,URINE NEGATIVE (NEGATIVE); LEUKOCYTE ESTERASE,URINE NEGATIVE (NEGATIVE); NITRITE,URINE NEGATIVE (NEGATIVE); PROTEIN,URINE NEGATIVE (NEGATIVE); URINE SPECIFIC GRAVITY 1.018
[2018-07-10] MEDS: ENALAPRIL MALEATE 10 MG TABLET PO SCH ×2 (10:56→17:56)
[2018-07-10] MEDS: ATENOLOL 50 MG TABLET PO SCH ×2 (10:56→19:59)
[2018-07-10] MEDS: VANCOMYCIN HCL 1,500 MG in DEXTROSE 5%-WATER 250 ML IV SCH ×2 (10:56→17:56)
[2018-07-10] MEDS: ASPIRIN 81 MG TABLET, CHEWABLE PO SCH (10:56)
[2018-07-10] MEDS ORDERED: DEXTROSE 40% GEL 15 GM TUBE PO PRN (11:15)
[2018-07-10] MEDS ORDERED: INSULIN LISPRO 100 UNIT/ML 3 ML VIAL SUBCUT PRN (11:15)
[2018-07-10] MEDS ORDERED: DEXTROSE 40% GEL 15 GM TUBE X 2 PO PRN (11:15)
[2018-07-10] MEDS ORDERED: GLUCAGON,HUMAN RECOMB 1 MG INJ IM PRN (11:15)
[2018-07-10] MEDS ORDERED: DEXTROSE 50%-WATER SYRINGE 12.5 GM/25 ML DOSE IV PRN (11:15)
[2018-07-10] MEDS ORDERED: DEXTROSE 50%-WATER SYRINGE 25 GM/50 ML DOSE IV PRN (11:15)
[2018-07-10 12:26] LABS: ANION GAP 11 (5-19); BLOOD UREA NITROGEN 17 mg/dL (7-20); CALCIUM 8.1 mg/dL (8.4-10.2); CARBON DIOXIDE 24 mmol/L (22-30); CHLORIDE 110 mmol/L (98-107); GLUCOSE 180 mg/dL (75-110); POTASSIUM 3.5 mmol/L (3.6-5.0); SODIUM 144.8 mmol/L (137-145)
--- NOTE | 2018-07-10 13:52 | PDOC PROGRESS REPORT ---
Subjective Progress Note for:: 07/10/18 Subjective:: No acute event overnight. Patient is coherent, awake and alert. He appears to be back with his baseline. Daughter does agree. Uncertain questions from daughter. Patient has been ambulating well without difficulties. Discussed patient may just need home physical therapy and home health nurse visits. No fever, chills. Denies chest pain or SOB. Reason For Visit: ENCEPHALOPATHY,FALL,RHABDOMYOLYSIS,PNEUMONIA Physical Exam Vital Signs: Temp Pulse Resp BP Pulse Ox 98.3 F 74 20 158/74 H 96 07/10/18 11:09 07/10/18 11:09 07/10/18 11:09 07/10/18 11:09 07/10/18 11:41 Pulse Oximeter Continuous Start: 07/07/18 23: 52 Freq: RTQ4 Status: Active Document 07/10/18 11:41 [facility] (Rec: 07/10/18 11:41 [facility] [id number]) Pulse Oximetry Assessment Oxygen Saturation (92-100) 96 Oxygen Delivery Method Room Air Fraction of Inspired Oxygen (FIO2) 21 Equipment Usage Equipment in Use Continuous SpO2 Machine # 11 Intake & Output 07/09/18 07/10/18 07/11/18 06:59 06:59 06:59 Intake Total 650 1666 487 Output Total 350 200 100 Balance 300 1466 387 General appearance: PRESENT: no acute distress, well-developed, well-nourished Head exam: PRESENT: other - Note of a superficial wound in the scalp Eye exam: PRESENT: conjunctiva pink, EOMI, PERRLA. ABSENT: scleral icterus Ear exam: PRESENT: normal external ear exam Neck exam: ABSENT: carotid bruit, JVD, lymphadenopathy, thyromegaly Respiratory exam: PRESENT: clear to auscultation angelica. ABSENT: rales, rhonchi, wheezes Cardiovascular exam: PRESENT: RRR. ABSENT: diastolic murmur, rubs, systolic murmur Pulses: PRESENT: normal dorsalis pedis pul GI/Abdominal exam: PRESENT: normal bowel sounds, soft. ABSENT: distended, guarding, mass, organolmegaly, rebound, tenderness Rectal exam: PRESENT: deferred Musculoskeletal exam: PRESENT: ambulatory Neurological exam: PRESENT: alert, awake, oriented to person, oriented to place , oriented to time, oriented to situation, CN II-XII grossly intact. ABSENT: motor sensory deficit Results Laboratory Results: 07/09/18 04:58 07/10/18 11:30 07/10/18 07/10/18 08:55 11:30 Sodium 144.8 Potassium 3.5 L Chloride 110 H Carbon Dioxide 24 Anion Gap 11 BUN 17 Creatinine 0.50 L Est GFR ( Amer) > 60 Est GFR (Non-Af Amer) > 60 Glucose 180 H Calcium 8.1 L Urine Color YELLOW Urine Appearance CLEAR Urine pH 6.0 Ur Specific [place] 1.018 Urine Protein NEGATIVE Urine Glucose (UA) NEGATIVE Urine Ketones NEGATIVE Urine Blood SMALL H Urine Nitrite NEGATIVE Ur Leukocyte Esterase NEGATIVE Urine WBC (Auto) 1 Urine RBC (Auto) 5 07/08/18 07/09/18 05:28 04:58 Creatine Kinase 5906 H 2794 H Impressions: Cervical Spine CT 07/07/18 00:00 IMPRESSION: NO ACUTE OR SIGNIFICANT FINDINGS IN THE CERVICAL SPINE. Head CT 07/07/18 00:00 IMPRESSION: Involutional changes of aging with mild chronic microvascular ischemia and no acute intracranial imaging findings. EVIDENCE OF ACUTE STROKE: NO. Chest X-Ray 07/07/18 20:21 IMPRESSION: Cardiomegaly with no trista CHF. Cannot exclude a limited right middle lobe or lower lobe pneumonia. Assessment & Plan - Diagnosis (1) Acute encephalopathy Is this a current diagnosis for this admission?: Yes Plan: Resolved. Acute encephalopathy is likely from suspected mild dementia compounded by benzodiazepine (Xanax) and narcotic use (Vicodin). UDS is positive for benzos and opiates. She is back to his baseline today. He is very coherent and oriented 3. Daughter does agree that patient is back to his baseline. (2) Atrial fibrillation Qualifiers: Atrial fibrillation type: paroxysmal Qualified Code(s): I48.0 - Paroxysmal atrial fibrillation Is this a current diagnosis for this admission?: Yes Plan: Rate controlled. Continue Xarelto. Continue p.o. Cardizem. (3) Right lower lobe pneumonia Qualifiers: Pneumonia type: aspiration pneumonia Is this a current diagnosis for this admission?: Yes Plan: Patient's right lower lobe pneumonia likely from aspiration. Unasyn was switched to vancomycin yesterday because of blood culture positive gram = cocci 1/2. This may be a possible contamination but will await final culture results. (4) Traumatic rhabdomyolysis Qualifiers: Encounter type: initial encounter Qualified Code(s): T79.6XXA - Traumatic ischemia of muscle, initial encounter Is this a current diagnosis for this admission?: Yes Plan: Resolving. CK trending down. Continue IV fluids. - Time Time Spent with patient: 25-34 minutes
[2018-07-10] MEDS ORDERED: DILTIAZEM HCL 120 MG CAP.SR.24H PO ONE (16:00)
[2018-07-10] MEDS: RIVAROXABAN 10 MG TABLET PO SCH (17:56)
[2018-07-10] MEDS ORDERED: CARVEDILOL 12.5 MG TABLET PO SCH (18:00)
[2018-07-10] MEDS: DOXAZOSIN MESYLATE 4 MG TABLET PO SCH (20:00)
[2018-07-10] MEDS ORDERED: DILTIAZEM HCL 120 MG CAP.SR.24H PO SCH (22:00)
[2018-07-11] MEDS: IPRATROPIUM/ALBUTEROL 0.5-2.5 MG/3 ML AMPUL NEB SCH ×3 (02:33→13:37)
[2018-07-11] MEDS: VANCOMYCIN HCL 1,500 MG in DEXTROSE 5%-WATER 250 ML IV SCH (04:32)
[2018-07-11] MEDS: HYDROCODONE/ACETAMINOPHEN 10-325 MG TABLET PO SCH ×2 (04:32→11:47)
[2018-07-11] MEDS ORDERED: HYDRALAZINE HCL INJ/PF 20 MG/1 ML SDV ONE (04:50)
[2018-07-11] MEDS ORDERED: HYDRALAZINE HCL INJ/PF 20 MG/1 ML SDV IV PRN (04:50)
[2018-07-11] MEDS ORDERED: ENALAPRIL MALEATE 10 MG TABLET PO SCH (08:30)
[2018-07-11] MEDS: ASPIRIN 81 MG TABLET, CHEWABLE PO SCH (09:42)
[2018-07-11] MEDS: ATENOLOL 50 MG TABLET PO SCH (09:42)
[2018-07-11] MEDS ORDERED: VANCOMYCIN HCL 1,500 MG in DEXTROSE 5%-WATER 250 ML IV SCH (12:00)
[2018-07-11 12:28] VITALS: BP 164/74
[2018-07-11 13:34] LABS: VANCOMYCIN,TROUGH 15.6 ug/mL (5.0-20.0)
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
[2018-07-11] MEDS ORDERED: DILTIAZEM HCL 120 MG CAP.SR.24H PO SCH ×3 (16:00→22:00)
== END 2018-07-11 15:16 | disposition home health service (06) | DRG 91 ==
LOC: ER 20:18 → EH 07-08 00:12 → 3W 07-08 02:50
PROVIDERS: ADMIT Internal Medicine; ATTEND Internal Medicine
DX: G92 Toxic encephalopathy (principal); J69.0 Pneumonitis due to inhalation of food and vomit; T42.4X1A Poisoning by benzodiazepines, accidental (unintentional), initial encounter; T79.6XXA Traumatic ischemia of muscle, initial encounter; I10 Essential (primary) hypertension; F03.90 Unspecified dementia, unspecified severity, without behavioral disturbance, psychotic disturbance, mood disturbance, and anxiety; E78.5 Hyperlipidemia, unspecified; F32.9 Major depressive disorder, single episode, unspecified; J45.909 Unspecified asthma, uncomplicated; W19.XXXA Unspecified fall, initial encounter; I48.0 Paroxysmal atrial fibrillation; S00.31XA Abrasion of nose, initial encounter; Z79.02 Long term (current) use of antithrombotics/antiplatelets; S50.312A Abrasion of left elbow, initial encounter; Y92.009 Unspecified place in unspecified non-institutional (private) residence as the place of occurrence of the external cause; Z60.2 Problems related to living alone; Z79.891 Long term (current) use of opiate analgesic; Z79.899 Other long term (current) drug therapy; Z90.49 Acquired absence of other specified parts of digestive tract; Z87.891 Personal history of nicotine dependence
CPT/HCPCS: 36415; 51701; 70450; 71045; 72125; 80048; 80053; 80202; 80307; 81001; 82140; 82550; 82553; 82565; 82803; 82962; 83605; 84484; 85025; 85610; 87040; 87077; 87086; 87186; 93005; 93010; 94640; 94762; 94799; 96365; 99291; G8978-GP; G8979-GP; G8996-GN; G8997-GN; G8998-GN; J0295; J0360; J1956; J2543; J3370; J3490; J7030; J7060; J7620